=== PATIENT | female | born 1955 | race Caucasian/White ===

== ENCOUNTER 2020-09-24 06:28 | Day surgery (SDC) | payer OTHER, SELFPAY ==
[2020-09-16 15:07] VITALS: BMI 35.0
--- NOTE | 2020-09-23 10:11 | P.CONAN_ITS ---
Documented by User: Amina Golden 09/23/20 10:11 HPI - Anesthesia Eval Consult details Narrative: 65yo F for Colonoscopy [facility] Past Medical History Medical History (Updated 09/16/20 @ 15:01 by Brittany Ferguson) Renal calculi Surgical History Surgical History (Updated 09/16/20 @ 15:03 by Brittany Ferguson) Hx of arthroscopy of right knee Hx of colonoscopy Social History Social History Are you a primary career development consultant to a significant other at home: No Do you presently have visiting nurse or other home services: No Smoking Status: Never smoker Use of substances other than those prescribed or required for medical reasons: No Have you been hit, kicked, punched, or otherwise hurt by someone within the past year? If so, by whom?: No Advance Directives: No Advance Directives Information Provided: No Advance Directives on File: No Recently lost weight without trying: No Meds Allergies Allergy/AdvReac Type Severity Reaction Status Date / Time No Known Allergies Allergy Verified 09/16/20 15:07 Home Medications Medication Instructions Recorded Confirmed Type Lactobacillus acidophilus 10,000 mmu cells PO DAILY 09/16/20 09/16/20 History [Probiotic] ascorbate calcium (vitamin C) 500 mg PO DAILY 09/16/20 09/16/20 History [Ladi-C] xnssttvivnot-woiwnnwo-tmcntd 1 tab PO DAILY 09/16/20 09/16/20 History [Centrum Silver] omega-3 fatty acids-vitamin E 1 cap PO DAILY 09/16/20 09/16/20 History [Fish Oil] vitamin B complex [B Complex] 1 cap PO DAILY 09/16/20 09/24/20 History Exam Exam Date and Time: September 23, 2020 1011 Height,Weight and Vital Signs: Height 5 ft 6 in Weight 98.43 kg Assessment and Plan Assessment Anesthesia Assessment: Chart Reviewed Documented by User: Hadley Rascon 09/24/20 07:40 [facility] Past Medical History Medical History (Updated 11/23/20 @ 15:01 by Brittany Ferguson) Renal calculi Surgical History Surgical History (Updated 09/16/20 @ 15:03 by Brittany Ferguson) Hx of arthroscopy of right knee Hx of colonoscopy Social History Social History Are you a primary career development consultant to a significant other at home: No Do you presently have visiting nurse or other home services: No Smoking Status: Never smoker Use of substances other than those prescribed or required for medical reasons: No Have you been hit, kicked, punched, or otherwise hurt by someone within the past year? If so, by whom?: No Advance Directives: No Advance Directives Information Provided: No Advance Directives on File: No Recently lost weight without trying: No Meds Allergies Allergy/AdvReac Type Severity Reaction Status Date / Time No Known Allergies Allergy Verified 09/16/20 15:07 Home Medications Medication Instructions Recorded Confirmed Type Lactobacillus acidophilus 10,000 mmu cells PO DAILY 09/16/20 09/16/20 History [Probiotic] ascorbate calcium (vitamin C) 500 mg PO DAILY 09/16/20 09/16/20 History [Ladi-C] vbunbdhxbflx-zwwujzgr-agqwgh 1 tab PO DAILY 09/16/20 09/16/20 History [Centrum Silver] omega-3 fatty acids-vitamin E 1 cap PO DAILY 09/16/20 09/16/20 History [Fish Oil] vitamin B complex [B Complex] 1 cap PO DAILY 09/16/20 09/24/20 History Exam Airway Mallampati Class: II TM Dist: >3cm Neck ROM: Full Partial: Lower Loose/Missing/Broken Teeth: No Heart: rrr+s1s2 Lungs: cta b/l Assessment and Plan Assessment Anesthesia Assessment: Anesthesia Plan Discussed, PAT Visit and Chart Reviewed Final Anesthetic Review NPO: Yes ASA Class: II Final Preanesthetic Review: No Changes in Pt Med Stat, Meds/Allgs Chart Reviewed, Consent Obtained/Reviewed and Anes Risks/Benef Reviewed Patient Risk: Low Procedure Risk: Low Anesthetic Plan Anesthetic Plan: MAC: Disposition: Standard PACU
[2020-09-24 06:38] VITALS: BP 121/72; PULSE 75; RESP 18; TEMP 36.1; O2SAT 95
[2020-09-24] MEDS: Lactated Ringers 1,000 ML 100 ML IVCONT (07:02)
--- NOTE | 2020-09-24 08:29 | MHC.SHP ---
Pre-Procedural Eval Section B Chief Complaint: Screening Details of Present Illness: screening Relevant Family History (Specify if Yes): No Relevant Social History: None Present Medications: see Short Stay Collaborative assessment Medical History: No relevant PMH History of Previous Operations: No relevant previous surgery Allergies: Allergies Allergy/AdvReac Type Severity Reaction Status Date / Time No Known Allergies Allergy Verified 09/16/20 15:07 Review of Systems Sugical H&P ROS: Negative: Constitution, Cardiovascular, Respiratory, Neurological, Psychiatric, Hem-Onc, Allergic/Immunologic, Gastrointestinal, Genitourinary, Musculoskeletal, Integumentary, Endocrine and Eyes/Ears/Nose/Throat Exam Surgical H&P Exam: Normal: HEENT, Normal: Heart, Normal: Lungs, Normal: Extremities, Normal: Abdomen, Normal: Skin and Normal: Neurological Plan Diagnosis/Plan: Unchanged Patient has been examined and remains a candidate for the planned procedure
[2020-09-24 08:30] VITALS: BP 85/49; PULSE 57; RESP 18; TEMP 36.2; O2SAT 97
--- NOTE | 2020-09-24 08:30 | PM.OP ---
Brief Operative Note Date of Service: 09/24/20 Pre-op diagnosis: screening Post-op diagnosis: same (colon polyps) Procedure: colonoscopy Surgeon: Damion Thrasher Anesthesia: MAC Estimated blood loss (mL): 5 Pathology: other (multiple polyps) Condition: stable Disposition: PACU
[2020-09-24 08:44] VITALS: BP 107/58; PULSE 58; RESP 18; TEMP 36.2; O2SAT 97
--- NOTE | 2020-09-24 09:12 | HO.POSTANES ---
Post Anesthesia Evaluation Post Anesthesia Evaluation Vital Signs: Vital Signs Temp Pulse Resp BP Pulse Ox 09/24/20 08:44 97.2 F 58 18 107/58 L 97 09/24/20 08:30 97.2 F 57 18 85/49 L 97 09/24/20 06:38 97 F 75 18 121/72 95 Anesthesia: Monitored Mental Status: Awake Pain Control: Satisfactory Nausea/Vomiting: None Hydration: Adequate Anesthesia-Related Issues: No Anes. Related Issues
--- NOTE | 2020-09-24 09:14 | OP_ITS ---
SURGEON: Damion Thrasher MD INDICATIONS: Prior history of adenomatous colon polyps. PREOPERATIVE DIAGNOSIS: POSTOPERATIVE DIAGNOSIS: PROCEDURE PERFORMED: Colonoscopy to the terminal ileum with snare polypectomy, biopsy and cauterization of colon polyps. ESTIMATED BLOOD LOSS: COMPLICATIONS: ANESTHESIA: ASSISTANTS: SPECIMENS: MEDICATIONS: Monitored anesthesia care. DESCRIPTION OF PROCEDURE: History and physical performed. The risks and benefits of the procedure were explained to the patient. Informed consent was obtained. The patient was placed in the left lateral decubitus position. A digital rectal exam was performed and was found to be normal. The Olympus pediatric video colonoscope was introduced into the rectum and advanced to the cecum without difficulty. The cecum was identified by transillumination, palpation, and identification of ileocecal valve. Examination was performed. The scope was removed. She tolerated the procedure well and was taken to recovery area in stable condition. FINDINGS: The terminal ileum was normal. The visualized colonic mucosa was normal. The quality of the prep was good in the right colon with 3 polyps, 2 measuring less than 10 mm and 1 flat polyp that measured about 2.5 cm x 1 cm that was along the fold. The 2 smaller polyps were snared. The larger polyp was piecemeal resected and the base cauterized. Multiple other polyps were removed with a combination of snare and cautery. These were located at 70 cm, 50 cm, 40 cm, 30 cm, and 20 cm. The polyp at 70 cm was not recovered, all were 10 mm or less. There was sigmoid diverticulosis. Retroflexed examination showed small internal hemorrhoids. The procedure was extended and difficult due to the number of polyps and a large polyp on the fold in the right colon. IMPRESSION: 1. Colon polyps. 2. Diverticulosis. 3. Extended/difficult procedure. RECOMMENDATION: 1. Follow up the biopsy results. 2. Consider repeat colonoscopy in 6 to 8 months for reassessment of the larger polyp. MD ARABELLA Franklin/CLYDE / [id number]
== END 2020-09-24 09:12 | disposition home or self-care (01) ==
PROVIDERS: PCP Internal Medicine; Visit Provider Internal Medicine Gastroenterology
PROC: 0DJD8ZZ Inspection of Lower Intestinal Tract, Via Natural or Artificial Opening Endoscopic (ICD-10-PCS; CPT 45378; principal; 2020-09-24 07:30)
DX: Z12.11 Encounter for screening for malignant neoplasm of colon (principal); D12.2 Benign neoplasm of ascending colon; D12.6 Benign neoplasm of colon, unspecified; K63.5 Polyp of colon; K57.30 Diverticulosis of large intestine without perforation or abscess without bleeding; Z86.010 Personal history of colon polyps
CPT/HCPCS: 45385; 45380; 88305; J2765

== ENCOUNTER 2021-05-27 06:30 | Day surgery (SDC) | payer BC, SELFPAY ==
[2021-05-21 11:18] VITALS: BMI 37.3
[2021-05-27 06:49] VITALS: BP 124/70; PULSE 62; RESP 20; TEMP 36.2; O2SAT 97
--- NOTE | 2021-05-27 06:53 | P.CONAN_ITS ---
HPI - Anesthesia Eval Consult details Narrative: Surveillance colonoscopy [facility] Past Medical History Medical History Renal calculi Patient : No Surgical History Surgical History Hx of arthroscopy of right knee Hx of colonoscopy Social History Social History Are you a primary direct care counselor to a significant other at home: No Do you presently have visiting nurse or other home services: No Patient Tobacco Use Status: Tobacco use Unknown Use of substances other than those prescribed or required for medical reasons: No Advance Directives Information Provided: No Meds Allergies Allergy/AdvReac Type Severity Reaction Status Date / Time No Known Allergies Allergy Verified 05/27/21 06:41 Active Medications: Current Medications Generic Name Dose Route Start Last Admin Trade Name Freq PRN Reason Stop Dose Admin Lactated Ringer's 1,000 mls @ 50 mls/hr 05/27/21 07:00 Lr IVCONT .Q20H JACOB Home Medications Medication Instructions Recorded Confirmed Last Taken Type Lactobacillus acidophilus 10 10,000 mmu cells PO DAILY 09/16/20 05/21/21 Unknown History billion cell capsule (Probiotic) ascorbate calcium (vitamin C) 500 500 mg PO DAILY 09/16/20 05/21/21 Unknown History mg tablet hzljbivpxqvq-tsvqswsp-debhdc tablet 1 tab PO DAILY 09/16/20 05/21/21 Unknown History omega-3 fatty acids-vitamin E 1 cap PO DAILY 09/16/20 05/21/21 Unknown History 1,000 mg capsule vitamin B complex 1 cap PO DAILY 09/16/20 05/21/21 09/16/20 History Exam Exam Date and Time: May 27, 2021 0653 Height,Weight and Vital Signs: Height 5 ft 5 in Weight 101.605 kg
--- NOTE | 2021-05-27 07:06 | P.CONAN_ITS ---
HPI - Anesthesia Eval Consult details Narrative: Surveillance Colonoscopy [facility] Past Medical History Medical History Renal calculi Family History Family history of problems with anesthesia: No Surgical History Surgical History Hx of arthroscopy of right knee Hx of colonoscopy History of Problems with Anesthesia: No Social History Social History Are you a primary direct care professional to a significant other at home: No Do you presently have visiting nurse or other home services: No Patient Tobacco Use Status: Tobacco use Unknown Use of substances other than those prescribed or required for medical reasons: No Advance Directives Information Provided: No Patient : No Travel History History of recent travel: No Meds Allergies Allergy/AdvReac Type Severity Reaction Status Date / Time No Known Allergies Allergy Verified 05/27/21 06:41 Active Medications: Current Medications Generic Name Dose Route Start Last Admin Trade Name Freq PRN Reason Stop Dose Admin Acetaminophen 650 mg 05/27/21 06:53 Acetaminophen 325 Mg Tablet PO ONCE PRN Pain, Mild (Pain Scale 1-3) Lactated Ringer's 1,000 mls @ 50 mls/hr 05/27/21 07:00 Lr IVCONT .Q20H JACOB Ondansetron HCl 4 mg 05/27/21 06:53 Ondansetron Hcl 4 Mg/2 Ml Vial IVPUSH ONCE PRN Nausea and Vomiting Home Medications Medication Instructions Recorded Confirmed Last Taken Type Lactobacillus acidophilus 10 10,000 mmu cells PO DAILY 09/16/20 05/21/21 Unknown History billion cell capsule (Probiotic) ascorbate calcium (vitamin C) 500 500 mg PO DAILY 09/16/20 05/21/21 Unknown History mg tablet tsdtzflxwjxf-kswfwibt-vdvuib tablet 1 tab PO DAILY 09/16/20 05/21/21 Unknown History omega-3 fatty acids-vitamin E 1 cap PO DAILY 09/16/20 05/21/21 Unknown History 1,000 mg capsule vitamin B complex 1 cap PO DAILY 09/16/20 05/21/21 09/16/20 History Exam Exam Date and Time: May 27, 2021 0706 Height,Weight and Vital Signs: Height 5 ft 5 in Weight 101.605 kg Last Vital Signs Temp 97.2 F 05/27/21 06:49 Pulse 62 05/27/21 06:49 Resp 20 05/27/21 06:49 BP 124/70 05/27/21 06:49 Pulse Ox 97 05/27/21 06:49 Narrative Narrative: lower partial taken out Assessment and Plan Assessment Anesthesia Assessment: Anesthesia Plan Discussed and Chart Reviewed Final Anesthetic Review Family History of Problems with Anesthesia: No History of Problems with Anesthesia: No NPO: Yes ASA Class: II Final Preanesthetic Review: No Changes in Pt Med Stat, Meds/Allgs Chart Reviewed, Consent Obtained/Reviewed and Anes Risks/Benef Reviewed Patient Risk: Low Procedure Risk: Low Assessment/Block/Sedation in SS: Assess/Block/Sedation-SS Anesthetic Plan Anesthetic Plan: MAC: and Agree w/ Assess. and Plan Disposition: Standard PACU
[2021-05-27] MEDS: Lactated Ringers 1,000 ML 50 ML IVCONT (07:11)
--- NOTE | 2021-05-27 07:19 | MHC.SHP ---
Pre-Procedural Eval Section A Date of Service: 05/27/21 Section B Chief Complaint: hx of polyps Details of Present Illness: F/U on colon polyp resected in September Relevant Family History (Specify if Yes): No Relevant Social History: None Present Medications: see Short Stay Collaborative assessment Medical History: No relevant PMH History of Previous Operations: No relevant previous surgery Allergies: Allergies Allergy/AdvReac Type Severity Reaction Status Date / Time No Known Allergies Allergy Verified 05/27/21 06:41 Review of Systems Sugical H&P ROS: Negative: Constitution, Cardiovascular, Respiratory, Neurological, Psychiatric, Hem-Onc, Allergic/Immunologic, Gastrointestinal, Genitourinary, Musculoskeletal, Integumentary, Endocrine and Eyes/Ears/Nose/Throat Exam Surgical H&P Exam: Normal: HEENT, Normal: Heart, Normal: Lungs, Normal: Extremities, Normal: Abdomen, Normal: Skin and Normal: Neurological Plan Diagnosis/Plan: Unchanged I have reviewed the history and physical and performed a pertinent physical examination on my patient. No changes have occurred unless specified.
[2021-05-27 08:07] VITALS: BP 101/63; PULSE 52; RESP 14; TEMP 36.9; O2SAT 97
--- NOTE | 2021-05-27 08:09 | PM.OP ---
Brief Operative Note Date of Service: 05/27/21 Pre-op diagnosis: colon polyp Post-op diagnosis: same Procedure: colonoscopy Surgeon: Damion Thrasher Anesthesia: MAC Was an Ancillary Services Manager used for this Procedure?: No Estimated blood loss (mL): 0 Pathology: other (polyps x2) Condition: stable Disposition: PACU
[2021-05-27 08:22] VITALS: BP 150/91; PULSE 47; RESP 17; TEMP 36.9; O2SAT 98
--- NOTE | 2021-05-27 08:53 | OP_ITS ---
SURGEON: Damion Thrasher MD INDICATIONS: Prior history of large adenomatous colon polyp with question of complete resection. PREOPERATIVE DIAGNOSIS: POSTOPERATIVE DIAGNOSIS: PROCEDURE PERFORMED: Colonoscopy to the terminal ileum with snare polypectomy. ESTIMATED BLOOD LOSS: COMPLICATIONS: ANESTHESIA: ASSISTANTS: SPECIMENS: MEDICATIONS: Monitored anesthesia care. DESCRIPTION OF PROCEDURE: History and physical performed. The risks and benefits of the procedure were explained to the patient. Informed consent was obtained. The patient was placed in left lateral decubitus position. A digital rectal exam was performed and was found to be normal. The Olympus pediatric video colonoscope was introduced into the rectum and advanced to the cecum without difficulty. The cecum was identified by transillumination, palpation, and identification of ileocecal valve. Examination was performed and the scope was removed. She tolerated the procedure well and was taken to recovery area in stable condition. FINDINGS: The terminal ileum was normal. The visualized colonic mucosa was normal. The quality of prep was good. Two polyps measuring less than 10 mm were removed with a snare. These were located in the right colon and at 75 cm. The area of the previous large polyp was examined carefully with several pull throughs of the scope in the right colon and no residual polypoid tissue was identified. The remainder of the colonic mucosa appeared within normal limits. In the sigmoid, were several diverticula. Retroflexed examination showed internal hemorrhoids. IMPRESSION: Colon polyps. RECOMMENDATIONS: 1. Follow up the biopsy results. 2. Consider repeat colonoscopy in 3 years. MD ARABELLA Franklin/DEBORAHL / [id number]
== END 2021-05-27 08:49 | disposition home or self-care (01) ==
PROVIDERS: PCP Internal Medicine; Visit Provider Internal Medicine Gastroenterology
PROC: 0DJD8ZZ Inspection of Lower Intestinal Tract, Via Natural or Artificial Opening Endoscopic (ICD-10-PCS; CPT 45378; principal; 2021-05-27 07:30)
DX: Z12.11 Encounter for screening for malignant neoplasm of colon (principal); Z86.010 Personal history of colon polyps; Z80.0 Family history of malignant neoplasm of digestive organs; D12.2 Benign neoplasm of ascending colon; D12.4 Benign neoplasm of descending colon; K57.30 Diverticulosis of large intestine without perforation or abscess without bleeding; K64.8 Other hemorrhoids; Z79.899 Other long term (current) drug therapy
CPT/HCPCS: 45385; 88305

== ENCOUNTER 2024-11-14 06:12 | Day surgery (SDC) | payer BC, SELFPAY ==
--- OUTSIDE RECORDS SUMMARY | 2024-10-17 10:38 | XMS_ITS | Patient Health Record ---
Author Organization [facility] Address [address] [place] [address] Care Team Providers Care Seed Analysis Laboratory Assistant Name Role Phone NONE, NONE Primary Care Provider Damion Galaviz Jr Unavailable [phone] ALLERGIES No Known Allergies REASON FOR REFERRAL No Information MEDICATIONS Medication SIG (Take, Route, Fr equency, Duration) Notes Start Date End Date Status Multivitamin Adult - Orally Active Ladi-C Active Probiotic - Orally Active Vitamin B Complex Ac tive IMMUNIZATIONS Vaccine Route Administration Date Status Comme nts Influenza Unknown 07/31/2020 Administered SOCIAL HISTORY Sex Assigned At : Social History Observation Description Sex Assigned At Unknown PROBLEMS Problem Type ICD Code Onset Dates Problem Status W/U Status Risk SNOMED Code Notes Problem Colon cancer screening (Z12.11) Active confirmed 710498464 Problem Encounter for other preprocedural examination (Z01.818) Active confirmed 802778683 Problem History of colon polyps (Z86.010) Active confirmed History of polyp of colon (556507435) Problem Long-term current use of high risk medication other than anticoagulant (Z79.899) Active confirmed [id number] VITAL SIGNS Blood pressure diastolic 00 mm Hg 09/07/2024 Height 5 ft 6 in in 09/07/2024 Blood pressure systolic 00 mm Hg 09/07/2024 Weight 237 lbs 09/07/2024 BMI 38.25 kg/m2 09/07/2024 Encounters Encounter Location Date Provider Diagnosis [facility] [address] [place] [id number] 09/07/2024 Damion Thrasher Jr Colon cancer screening Z12.11 and Encounter for other preprocedural examination Z01.818 ASSESSMENTS Encounter Date Diagnosis Assessment Notes Treatment Notes Treatment Clinical Notes 09/07/2024 Colon cancer screening (ICD-10 - Z12.11) 09/07/2024 Encounter for other preprocedural examination (ICD-10 - Z01.818) Colonoscopy material was printed PLAN OF TREATMENT Future Test Test Name Order Date COLONOSCOPY 07/05/2013 COLONOSCOPY 12/24/2016 COLONOSCOPY 08/09/2020 COLONOSCOPY 09/07/2024 Next Appt Details Provider Name:Damion sanchez Jr, 11/14/2024 07:30:00 AM, [address] [place] [address], [phone], Insurance Providers Payer Name Payer Address Payer Phone Subscriber Number Group Number Insured Name Patient Relationship to Insured Coverage Start Date Coverage End Date [facility] [address] [place] [address] [id number] HAIR ESCOBAR Self - patient is the insured MEDICAL (GENERAL) HISTORY Medical History History ICD Code Colonoscopy 06/14, tubular ad enomas x2, three-year followup due to flat polyps nephrolithiasis Surgical History Surgery Date(Month/Year) knee surgery - right
[2024-11-09 15:10] VITALS: BMI 38.2
--- NOTE | 2024-11-13 12:02 | HO.ANESPROP2 ---
Documented by User: Amina Golden NP 11/13/24 12:02 HPI - Anesthesia Eval Consult details Narrative: 69yo F for Colonoscopy [facility] Past Medical History Medical History Renal calculi Family History Family history of problems with anesthesia: No Surgical History Surgical History Hx of arthroscopy of right knee Hx of colonoscopy History of Problems with Anesthesia: No Social History Social History Are you a primary manager medicare marketing to a significant other at home: No Do you presently have visiting nurse or other home services: No Patient Tobacco Use Status: Never used Tobacco Use of substances other than those prescribed or required for medical reasons: No Advance Directives: No Advance Directives Information Provided: Yes Meds Allergies Allergy/AdvReac Type Severity Reaction Status Date / Time No Known Allergies Allergy Verified 05/27/21 06:41 Home Medications ?Medication ?Instructions ?Recorded ?Confirmed ?Last Taken ?Type Lactobacillus acidophilus 10 10,000 mmu cells PO DAILY 09/16/20 11/14/24 Unknown History billion cell capsule (Probiotic) ascorbate calcium (vitamin C) 500 500 mg PO DAILY 09/16/20 11/14/24 Unknown History mg tablet bbjlgsxmsecv-iqwgwzzk-vemium tablet 1 tab PO DAILY 09/16/20 11/14/24 Unknown History vitamin B complex 1 cap PO DAILY 09/16/20 11/14/24 09/16/20 History Exam Height,Weight and Vital Signs: Height 5 ft 6 in Weight 107.501 kg Assessment and Plan Assessment Anesthesia Assessment: Chart Reviewed Final Anesthetic Review Family History of Problems with Anesthesia: No History of Problems with Anesthesia: No Documented by User: Kaylah Lauren MD 11/14/24 09:00 PMF Past Medical History Medical History Renal calculi Surgical History Surgical History Hx of arthroscopy of right knee Hx of colonoscopy Social History Social History Are you a primary manager medicare marketing to a significant other at home: No Do you presently have visiting nurse or other home services: No Patient Tobacco Use Status: Never used Tobacco Use of substances other than those prescribed or required for medical reasons: No Advance Directives: No Advance Directives Information Provided: Yes Meds Allergies Allergy/AdvReac Type Severity Reaction Status Date / Time No Known Allergies Allergy Verified 05/27/21 06:41 Home Medications ?Medication ?Instructions ?Recorded ?Confirmed ?Last Taken ?Type Lactobacillus acidophilus 10 10,000 mmu cells PO DAILY 09/16/20 11/14/24 Unknown History billion cell capsule (Probiotic) ascorbate calcium (vitamin C) 500 500 mg PO DAILY 09/16/20 11/14/24 Unknown History mg tablet tucszderhqow-lxqjiysr-dviesg tablet 1 tab PO DAILY 09/16/20 11/14/24 Unknown History vitamin B complex 1 cap PO DAILY 09/16/20 11/14/24 09/16/20 History Exam Airway Mallampati Class: II TM Dist: >3cm Neck ROM: Full Heart: rrr Lungs: cta Assessment and Plan Assessment Anesthesia Assessment: Anesthesia Plan Discussed Final Anesthetic Review NPO: Yes ASA Class: I Final Preanesthetic Review: No Changes in Pt Med Stat, Meds/Allgs Chart Reviewed, Consent Obtained/Reviewed and Anes Risks/Benef Reviewed Patient Risk: Low Procedure Risk: Low Anesthetic Plan Anesthetic Plan: MAC: Disposition: Standard PACU
--- NOTE | 2024-11-14 07:00 | P.HPSUR_ITS ---
Pre-Procedural Eval Section A - 24 Hr Update-Section A only Date of Service: 11/14/24 Section B - Complete if H&P > 30 days Chief Complaint: Encounter for screening for malignant neoplasm of Details of Present Illness: see H*P no changes Relevant Family History (Specify if Yes): No Relevant Social History: None Present Medications: see Short Stay Collaborative assessment Medical History: No relevant PMH History of Previous Operations: No relevant previous surgery Allergies: Allergies Allergy/AdvReac Type Severity Reaction Status Date / Time No Known Allergies Allergy Verified 05/27/21 06:41 Review of Systems Sugical H&P ROS: Negative: Constitution, Cardiovascular, Respiratory, Neurological, Psychiatric, Hem-Onc, Allergic/Immunologic, Gastrointestinal, Genitourinary, Musculoskeletal, Integumentary, Endocrine and Eyes/Ears/No se/Throat Exam Surgical H&P Exam: Normal: HEENT, Normal: Heart, Normal: Lungs, Normal: Extremities, Normal: Abdomen, Normal: Skin and Normal: Neurological Plan Diagnosis/Plan: Unchanged I have reviewed the history and physical and performed a pertinent physical examination on my patient. No changes have occurred unless specified. Time Spent With Patient Time: Total time managing care of this patient today ____ minutes.
[2024-11-14 07:16] VITALS: BP 145/86; PULSE 68; RESP 16; TEMP 36.1; O2SAT 95; BMI 37.8
[2024-11-14] MEDS: Lactated Ringers 1,000 ML 100 ML IVCONT (07:20)
[2024-11-14 08:13] VITALS: BP 94/53; PULSE 54; RESP 16; TEMP 36.5; O2SAT 99
[2024-11-14 08:28] VITALS: BP 110/62; PULSE 54; RESP 16; O2SAT 97
--- NOTE | 2024-11-14 08:44 | OP_ITS ---
DATE OF SERVICE: 11/14/2024 SURGEON: Damion Thrasher MD INDICATIONS: Cancer screening and prior history of adenomatous colon polyps. PREOPERATIVE DIAGNOSIS: POSTOPERATIVE DIAGNOSIS: PROCEDURE PERFORMED: Colonoscopy to the terminal ileum with biopsy. ESTIMATED BLOOD LOSS: COMPLICATIONS: ANESTHESIA: ASSISTANTS: SPECIMENS: MEDICATIONS: Monitored anesthesia care. DESCRIPTION OF PROCEDURE: History and physical were performed. The risks and benefits of the procedure were explained to the patient. Informed consent was obtained. The patient was placed in the left lateral decubitus position. The Olympus video colonoscope was introduced into the rectum after digital rectal exam was performed and was found to be normal. The scope was advanced to the cecum. The cecum was identified by transillumination, palpation, identification of ileocecal valve. Examination was performed and the scope was removed. She tolerated the procedure well and returned to recovery area in stable condition. FINDINGS: The terminal ileum was examined and appeared normal. The visualized colonic mucosa was within normal limits without evidence of masses or ulcers. Two polyps were identified. Both measured less than 5 mm and were removed with a biopsy forceps. These were located at 65 cm and in the rectum. No other polyps were seen. There was mild sigmoid diverticulosis. The quality of the prep was good. Retroflexed examination showed moderate-sized internal hemorrhoids. IMPRESSION: Colon polyps. RECOMMENDATION: Follow up the biopsy results. MD ARABELLA Franklin/CLYDE / [id number] MTDD
== END 2024-11-14 08:55 | disposition home or self-care (01) ==
PROVIDERS: Visit Provider Internal Medicine Gastroenterology
PROC: 0DJD8ZZ Inspection of Lower Intestinal Tract, Via Natural or Artificial Opening Endoscopic (ICD-10-PCS; CPT 45378; principal; 2024-11-14 07:30)
DX: Z12.11 Encounter for screening for malignant neoplasm of colon (principal); D12.4 Benign neoplasm of descending colon; K62.1 Rectal polyp; K57.30 Diverticulosis of large intestine without perforation or abscess without bleeding; K64.8 Other hemorrhoids; Z86.0101 Personal history of adenomatous and serrated colon polyps; Z79.899 Other long term (current) drug therapy
CPT/HCPCS: 45380; 88305; J2003; J2704